=== PATIENT | female | born 1935 | race Caucasian/White ===

== ENCOUNTER → 2017-05-11 | Outpatient (CLI) | payer OTHER ==
[~2017-05-11] VITALS: Ht 160 cm; Wt 54.0 kg
[~2017-05-11] MED LIST: AVELOX400 MG PO; CALCIUM 500 MG1 EACH PO; CALCIUM CARBO1000 MG PO; CARAFATE1 GM PO; COLACE100 MG PO; CYANOCOBALAM1000 MCG PO; FIBER THERAPY0.52 GM PO; FIBERCON625 MG PO; MILLIPRED DP5 MG PO; NEXIUM40 MG PO; ONDANSETRON ODT4 MG PO; OYSTER SHELL C500 M1 PO; PANCREAZE 10,51 EACH PO; PERCOCET 5/31 TABLET PO; PREDNISONE20 MG PO; RECLAST5 MG/100 M IV; VITAMIN B-12500 MC4 PO; VITAMIN D-32000 UNI2 PO; VITAMIN D1000 UNIT PO; VITAMIN D2000 UNIT PO; VITAMIN D31000 UNIT PO; ZOFRAN4 MG PO; [UNRECOGNIZED DRUG - OTHER] PO
[2017-05-11 17:08] VITALS: BP 148/87
== END | disposition home or self-care (01) ==
LOC: IVINF 16:52
DX: M81.0 Age-related osteoporosis without current pathological fracture (principal)
CPT/HCPCS: 96365; J3489

== ENCOUNTER → 2018-07-02 | Outpatient (CLI) | payer OTHER ==
[~2018-07-02] VITALS: Ht 160 cm; Wt 55.0 kg
[~2018-07-02] MED LIST changes: +MELOXICAM7.5 MG PO; +PANTOPRAZOLE SO40 MG PO; +PRESERVISION S1 EACH PO
[2018-07-02 14:17] VITALS: BP 139/65
== END | disposition home or self-care (01) ==
LOC: IVINF 06-29 15:00
DX: M85.80 Other specified disorders of bone density and structure, unspecified site (principal)
CPT/HCPCS: 96365; J3489